=== PATIENT | male | born 1995 | race Hispanic/Latino ===

== ENCOUNTER 2020-09-26 13:47 | Emergency (ER) | payer BC, OTHER ==
[2020-09-26 14:49] LABS: ALT/SGPT 64 U/L (12-78); AST/SGOT 32 U/L (15-37); Albumin 4.3 g/dL (3.4-5.0); Alkaline Phosphatase 60 U/L (45-117); BUN Blood Urea Nitrogen 13 mg/dL (7-18); Bicarbonate 26 mmol/L (21-32); Bilirubin Direct 0.1 mg/dL (0-0.2); Bilirubin Total 0.4 mg/dL (0.2-1.0); Glucose Level 176 mg/dL (74-106); Lipase 76 U/L (73-393); Potassium 3.7 mmol/L (3.5-5.1); Sodium Level 138 mmol/L (136-145)
[2020-09-26 14:51] LABS: Absolute Lymphocytes (CBC) 1.3 K/uL (0.7-4.9); Basophils % 0.5 % (0-1.3); Hematocrit 41.4 % (39.6-49.0); Lymphocytes % 23.8 % (15.3-44.8); MPV 9.3 fL (7.6-11.3)
[2020-09-26] MEDS ORDERED: ONDANSETRON 4 MG/2 ML VIAL ONE (14:54)
[2020-09-26] MEDS ORDERED: KETOROLAC 30 MG/ML INJ ONE (14:54)
[2020-09-26] MEDS ORDERED: NA CHLORIDE 0.9% 0 ML ONE (14:54)
--- NOTE | 2020-09-26 15:33 | RAD REPORT ---
EXAM DESCRIPTION: CT - Head Brain Wo Cont - 09/26/2020 3:11 pm CLINICAL HISTORY: Headache COMPARISON: None. TECHNIQUE: Computed axial tomography of the head was obtained. IV contrast was not requested. All CT scans are performed using dose optimization technique as appropriate and may include automated exposure control or mA/KV adjustment according to patient size. FINDINGS: An intracranial bleed is not seen . The ventricles are normal in caliber. No extra-axial fluid collection is noted. Fluid within the sinuses/ mastoids is not seen. IMPRESSION: No acute intracranial abnormality is seen. If patient's symptoms persist MRI of the bra in would be recommended.
--- NOTE | 2020-09-26 15:40 | RAD REPORT ---
EXAM DESCRIPTION: CT - Abdomen Pelvis W Contrast - 09/26/2020 3:11 pm CLINICAL HISTORY: Abdominal pain COMPARISON: none. TECHNIQUE: Computed axial tomography of the abdomen pelvis was obtained. 100 cc Isovue-300 was admin istered intravenously. Oral contrast was not requested which limits evaluation of bowel and appendix. All CT scans are performed using dose optimization technique as appropriate and may include automated exposure control or mA/KV adjustment according to patient size. FINDINGS: Mild fatty liver Spleen, pancreas, adrenal and kidneys appear unremarkable. There is no evidence of diverticulitis. Mild gastric distention IMPRESSION: Mild gastric distention
[2020-09-26] MEDS ORDERED: NA CHLORIDE 0.9% 1,000 ML ONE (16:01)
[2020-09-26] MEDS ORDERED: NA CHLORIDE 0.9% 100 ML ONE (16:02)
[2020-09-26] MEDS ORDERED: METOCLOPRAMIDE 10 MG/2mL INJ ONE (16:02)
--- NOTE | 2020-09-26 16:20 | EDPHYS ---
Physician Documentation [facility] Name: Antonio Lopez Age: 25 yrs Sex: Male : 1995 Arrival Date: 09/26/2020 Time: 13:50 Bed 25 Private MD: ED Physician Good Amador HPI: 09/26 20:44 This 25 yrs old Male presents to ER via Ambulatory with complaints of kb Headache, Nausea. 20:44 The patient presents with abdominal pain in the left upper quadrant. Onset: The kb symptoms/episode began/occurred this morning. The symptoms do not radiate. Associated signs and symptoms: Pertinent positives: headache. The symptoms are described as constant. Modifying factors: The symptoms are alleviated by nothing, the symptoms are aggravated by nothing. Severity of pain: At its worst the pain was moderate in the emergency department the pain is unchanged. The patient has experienced similar episodes in the past. The patient has not recently seen a physician. Pt reports LUQ pain that has been on and off for a few years. Had an upper GI done and they found an ulcer but nothing has been done to treat it yet. Pain today is the same as he's had in the past. Also reports he has been having headaches for the past year and has one today. Historical: - Allergies: 13:59 No Known Allergies; tw2 - Home Meds: 13:59 None [Active]; tw2 - PMHx: 14:07 gastric ulcer; tw2 - PSHx: 13:59 Tonsillectomy; tw2 - Immunization history:: Adult Immunizations. - Social history:: Smoking status: Patient denies any tobacco usage or history of. Patient uses alcohol, occasionally. street drugs, marijuana, "a couple hours ago, i spoke at least once a day", Patient/guardian denies using. ROS: 20:44 Constitutional: Negative for fever, chills, and weight loss, Cardiovascular: Negative kb for chest pain, palpitations, and edema, Respiratory: Negative for shortness of breath, cough, wheezing, and pleuritic chest pain, Back: Negative for injury and pain, MS/Extremity: Negative for injury and deformity, Skin: Negative for injury, rash, and discoloration. 20:44 Abdomen/GI: Positive for abdominal pain, Negative for nausea, vomiting, and diarrhea. 20:44 Neuro: Positive for headache. Exam: 20:44 Constitutional: This is a well developed, well nourished patient who is awake, alert, kb and in no acute distress. Head/Face: Normocephalic, atraumatic. Chest/axilla: Normal chest wall appearance and motion. Nontender with no deformity. No lesions are appreciated. Cardiovascular: Regular rate and rhythm with a normal S1 and S2. No gallops, murmurs, or rubs. Normal PMI, no JVD. No pulse deficits. Respiratory: Lungs have equal breath sounds bilaterally, clear to auscultation and percussion. No rales, rhonchi or wheezes noted. No increased work of breathing, no retractions or nasal flaring. Skin: Warm, dry with normal turgor. Normal color with no rashes, no lesions, and no evidence of cellulitis. MS/ Extremity: Pulses equal, no cyanosis. Neurovascular intact. Full, normal range of motion. Neuro: Awake and alert, GCS 15, oriented to person, place, time, and situation. Cranial nerves II-XII grossly intact. Motor strength 5/5 in all extremities. Sensory grossly intact. Cerebellar exam normal. Normal gait. 20:44 Abdomen/GI: Inspection: abdomen appears normal, Bowel sounds: normal, Palpation: soft, in all quadrants, mild abdominal tenderness, in the left upper quadrant. Vital Signs: 13:55 BP 151 / 77; Pulse 149; Resp 20; Temp 98.2(TE); Pulse Ox 100% on R/A; Weight 88.45 kg tw2 (R); Height 5 ft. 8 in. (172.72 cm) (R); Pain 10/10; 14:05 BP 138 / 64; Pulse 111; Resp 18 S; Pulse Ox 100% on R/A; ca1 15:00 BP 113 / 52; Pulse 94; Resp 19 S; Pulse Ox 99% on R/A; ca1 16:00 BP 110 / 50; Pulse 100; Resp 16 S; Pulse Ox 98% on R/A; ca1 13:55 Body Mass Index 29.65 (88.45 kg, 172.72 cm) tw2 [place] Coma Score: 16:17 Eye Response: spontaneous(4). Verbal Response: oriented(5). Motor Response: obeys kb commands(6). Total: 15. MDM: 14:02 Patient medically screened. kb 16:17 Data reviewed: vital signs, nurses notes. Data interpreted: Pulse oximetry: on room air kb is 100 %. Interpretation: normal. Counseling: I had a detailed discussion with the patient and/or guardian regarding: the historical points, exam findings, and any diagnostic results supporting the discharge/admit diagnosis, lab results, radiology results, the need for outpatient follow up, a family practitioner, a emerging technologies director, to return to the emergency department if symptoms worsen or persist or if there are any questions or concerns that arise at home. 09/26 14:09 Order name: Basic Metabolic Panel; Complete Time: 14:52 kb 09/26 14:09 Order name: CBC with Diff; Complete Time: 14:59 kb 09/26 14:09 Order name: Hepatic Function; Complete Time: 14:52 kb 09/26 14:09 Order name: Lipase; Complete Time: 14:52 kb 09/26 14:09 Order name: CT Head Brain wo Cont; Complete Time: 15:36 kb 09/26 14:09 Order name: CT Abd/Pelvis - IV Contrast Only; Complete Time: 15:40 kb 09/26 14:09 Order name: IV Saline Lock; Complete Time: 14:26 kb 09/26 14:09 Order name: Labs collected and sent; Complete Time: 14:26 kb Administered Medications: 14:30 Drug: NS 0.9% 1000 ml Route: IV; Rate: 1000 ml; Site: left antecubital; ca1 15:30 Follow up: Response: No adverse reaction; IV Status: Completed infusion; IV Intake: ca1 1000ml 14:32 Drug: Zofran (Ondansetron) 4 mg Route: IVP; Site: left antecubital; ca1 15:00 Follow up: Response: No adverse reaction; Vomiting decreased ca1 14:35 Drug: TORadol - Ketorolac 15 mg Route: IVP; Site: left antecubital; ca1 15:30 Follow up: Response: No adverse reaction; Pain is decreased ca1 15:48 Drug: Reglan 10 mg Route: IVP; Site: left antecubital; ca1 16:00 Follow up: Response: No adverse reaction; Nausea is decreased ca1 Disposition: 09/26/20 16:19 Discharged to Home. Impression: Upper abdominal pain, unspecified. - Condition is Stable. - Discharge Instructions: Abdominal Pain, Adult, [id number] - Medication Reconciliation Form, Thank You Letter, Antibiotic Education, Prescription Opioid Use form. - Follow up: Private Physician; When: 2 - 3 days; Reason: Recheck today's complaints, Continuance of care, Re-evaluation by your physician. Follow up: Emergency Department; When: As needed; Reason: Worsening of condition. Follow up: Ron Dc MD; When: 2 - 3 days; Reason: Recheck today's complaints, Continuance of care, Re-evaluation by your physician. Addendum: 09/30/2020 05:51 Co-signature as Attending Physician, Good Amador MD I agree with the assessment and k dr plan of care. Signatures: Dispatcher [employer] EDMS Ingrid Peña, REHABILITATION MEDICINE PHYSICIAN-C REHABILITATION MEDICINE PHYSICIAN-Ckb Good Amador MD MD [facility] Dana Mcpherson RN RN tw2 Mar Pepper RN RN ca1 Corrections: (The following items were deleted from the chart) 09/26 16:28 16:19 09/26/2020 16:19 Discharged to Home. Impression: Upper abdominal pain, ca1 unspecified. Condition is Stable. Forms are Medication Reconciliation Form, Thank You Letter, Antibiotic Education, Prescription Opioid Use. Follow up: Private Physician; When: 2 - 3 days; Reason: Recheck today's complaints, Continuance of care, Re-evaluation by your physician. Follow up: Emergency Department; When: As needed; Reason: Worsening of condition. Follow up: Ron Dc; When: 2 - 3 days; Reason: Recheck today's complaints, Continuance of care, Re-evaluation by your physician. kb
--- NOTE | 2020-09-26 16:20 | ER ---
Nurse's Notes [facility] Name: Antonio Lopez Age: 25 yrs Sex: Male : 1995 Arrival Date: 09/26/2020 Time: 13:50 Bed 25 Private MD: Diagnosis: Upper abdominal pain, unspecified Presentation: 09/26 13:55 Chief complaint: Patient states: i am having really bad stomach on the left side of my tw2 stomach and a really bad headache, i had a stomach ulcer 4 years ago, i need a scope but i havent done anything about the ulcer, i have a headache on the back of my head, and my heart is high like i get episodes like stress related. Coronavirus screen: headache, nausea. Ebola Screen: Patient denies travel to an Ebola-affected area in the 21 days before illness onset. Initial Sepsis Screen: Does the patient meet any 2 criteria? HR > 90 bpm. No. Patient's initial sepsis screen is negative. Does the patient have a suspected source of infection? No. Patient's initial sepsis screen is negative. Risk Assessment: Do you want to hurt yourself or someone else? Patient reports no desire to harm self or others. Onset of symptoms was September 26, 2020. 13:55 Method Of Arrival: Ambulatory tw2 13:55 Acuity: YARIEL 2 tw2 Triage Assessment: 13:59 General: Appears uncomfortable, ill, Behavior is calm, cooperative, appropriate for tw2 age. Pain: Complains of pain in scalp and abdomen. Neuro: Reports headache. GI: Reports lower abdominal pain, upper abdominal pain, nausea. Historical: - Allergies: 13:59 No Known Allergies; tw2 - Home Meds: 13:59 None [Active]; tw2 - PMHx: 14:07 gastric ulcer; tw2 - PSHx: 13:59 Tonsillectomy; tw2 - Immunization history:: Adult Immunizations. - Social history:: Smoking status: Patient denies any tobacco usage or history of. Patient uses alcohol, occasionally. street drugs, marijuana, "a couple hours ago, i spoke at least once a day", Patient/guardian denies using. Screenin:06 Abuse screen: Denies threats or abuse. Nutritional screening: No deficits noted. tw2 Tuberculosis screening: No symptoms or risk factors identified. Fall Risk None identified. Assessment: 14:05 General: Appears in no apparent distress. comfortable, Behavior is calm, cooperative, ca1 appropriate for age. Pain: Complains of pain in left upper quadrant Pain currently is 9 out of 10 on a pain scale. Pain began 2 hours ago. Is continuous. Neuro: Level of Consciousness is awake, alert, obeys commands, Oriented to person, place, time, situation. 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 Cardiovascular: Heart tones S1 S2 present Capillary refill < 3 seconds Patient's skin is warm and dry. Respiratory: Airway is patent Respiratory effort is even, unlabored, Respiratory pattern is regular, symmetrical, Breath sounds are clear bilaterally. GI: Abdomen is round non-distended, Bowel sounds present X 4 quads. Abd is soft X 4 quads Abdomen is tender to palpation in left upper quadrant Reports nausea. : No signs and/or symptoms were reported regarding the genitourinary system. EENT: No signs and/or symptoms were reported regarding the EENT system. Derm: Skin is intact, is healthy with good turgor, Skin is pink, warm \\T\\ dry. Musculoskeletal: Circulation, motion, and sensation intact. Capillary refill < 3 seconds. 15:00 Reassessment: Patient appears in no apparent distress at this time. Patient and/or ca1 family updated on plan of care and expected duration. Pain level reassessed. Patient is alert, oriented x 3, equal unlabored respirations, skin warm/dry/pink. 16:00 Reassessment: Patient appears in no apparent distress at this time. Patient and/or ca1 family updated on plan of care and expected duration. Pain level reassessed. Patient is alert, oriented x 3, equal unlabored respirations, skin warm/dry/pink. Vital Signs: 13:55 BP 151 / 77; Pulse 149; Resp 20; Temp 98.2(TE); Pulse Ox 100% on R/A; Weight 88.45 kg tw2 (R); Height 5 ft. 8 in. (172.72 cm) (R); Pain 10/10; 14:05 BP 138 / 64; Pulse 111; Resp 18 S; Pulse Ox 100% on R/A; ca1 15:00 BP 113 / 52; Pulse 94; Resp 19 S; Pulse Ox 99% on R/A; ca1 16:00 BP 110 / 50; Pulse 100; Resp 16 S; Pulse Ox 98% on R/A; ca1 13:55 Body Mass Index 29.65 (88.45 kg, 172.72 cm) tw2 [place] Coma Score: 16:17 Eye Response: spontaneous(4). Verbal Response: oriented(5). Motor Response: obeys kb commands(6). Total: 15. ED Course: 13:50 Patient arrived in ED. as 13:58 Triage completed. tw2 13:59 Arm band placed on. tw2 14:01 Bed in low position. Call light in reach. court recording monitor on. Pulse ox on. NIBP on. tw2 14:02 In[facility]C [facility]. kb 14:02 Good Amador MD is Attending Physician. kb 14:04 Mar Pepper, PÉREZ is Primary Nurse. ca1 14:26 Inserted saline lock: 20 gauge in left antecubital area, using aseptic technique. Blood dh4 collected. 15:11 CT Head Brain wo Cont In Process Unspecified. EDMS 15:11 CT Abd/Pelvis - IV Contrast Only In Process Unspecified. EDMS 16:19 Ron Dc MD is Referral Physician. kb 16:27 No provider procedures requiring assistance completed. IV discontinued, intact, ca1 bleeding controlled, No redness/swelling at site. Pressure dressing applied. Administered Medications: 14:30 Drug: NS 0.9% 1000 ml Route: IV; Rate: 1000 ml; Site: left antecubital; ca1 15:30 Follow up: Response: No adverse reaction; IV Status: Completed infusion; IV Intake: ca1 1000ml 14:32 Drug: Zofran (Ondansetron) 4 mg Route: IVP; Site: left antecubital; ca1 15:00 Follow up: Response: No adverse reaction; Vomiting decreased ca1 14:35 Drug: TORadol - Ketorolac 15 mg Route: IVP; Site: left antecubital; ca1 15:30 Follow up: Response: No adverse reaction; Pain is decreased ca1 15:48 Drug: Reglan 10 mg Route: IVP; Site: left antecubital; ca1 16:00 Follow up: Response: No adverse reaction; Nausea is decreased ca1 Outcome: 16:19 Discharge ordered by . kb 16:27 Discharged to home ambulatory. ca1 16:27 Condition: stable 16:27 Discharge instructions given to patient, Instructed on discharge instructions, follow up and referral plans. Demonstrated understanding of instructions, follow-up care. 16:28 Patient left the ED. ca1 Signatures: Dispatcher [employer] Ingrid Young, RUSTAM TORIBIO-Iliana Grayson Tara, RN RN tw2 Mar Pepper RN RN ca1 Marino Rodrigues 4
[2020-09-26 17:00] VITALS: TEMP 98.2
[2020-09-26 17:04] VITALS: BP 110/50; O2SAT 98
== END 2020-09-26 16:28 | disposition home or self-care (01) ==
LOC: ER 13:47
DX: R10.12 Left upper quadrant pain (principal); R51.9 Headache, unspecified
CPT/HCPCS: 96361; 85025; 80048; 36415; 80076; 83690; 70450; 74177; 96375; 96374; 99284; Q9967; J2765; J7030; J2405